=== PATIENT | male | born 1950 | race Two or more races ===

== ENCOUNTER 2024-03-30 12:05 | Emergency (ER) | payer MEDICARE, OTHER ==
[~2024-03-30] VITALS: Ht 172.7 cm; Wt 81.0 kg
[2024-03-30 12:09] VITALS: PULSE 91; RESP 15; O2SAT 97
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
[2024-03-30] MEDS: ceFAZolin 1GM/50ML 50 ML IV ONE (12:27)
[2024-03-30] MEDS: TETANUS-DIPTH-ACEL PERTUSSIS 0.5ML SYR Tdap IM ONE (12:29)
[2024-03-30] MEDS: LIDOCAINE 1% HCL (LOCAL ANESTH.) INJ 20ML MDV ID ONE (12:55)
[2024-03-30 12:58] LABS: Urine Bacteria None Seen /hpf (None Seen)
[2024-03-30 12:58] LABS: Basophils # (auto) 0 10 ^3/uL (0-0.2); Basophils % (auto) 0.4 % (0.0-2.0); Eosinophils # (auto) 0.1 10 ^3/uL (0-0.8); Eosinophils % (auto) 0.7 % (0.0-7.0); Hematocrit 47.2 % (41.0-53.0); Hemoglobin 16.5 g/dL (13.5-17.5); Lymphocytes % (auto) 12.7 % (10.0-50.0); Mean Corpuscular Hemoglobin 33.5 pg (28.0-32.0); Mean Corpuscular Hgb Conc. 34.9 g/dL (32.0-36.0); Monocytes # (auto) 0.5 10 ^3/uL (0-1.3); Monocytes % (auto) 6.1 % (0.0-12.0); Neutrophils # (auto) 6.3 10 ^3/uL (1.6-8.6); Neutrophils % (auto) 80.1 % (37.0-80.0); Nucleated Red Blood Cells % 0.1 %; Platelet Count (auto) 173 10^3/uL (140-450); Red Blood Cells 4.91 10^6/uL (4.5-5.90); Red Cell Distribution Width 12.7 % (11.8-14.3); White Blood Cell 7.8 10^3/uL (4.4-10.8)
[2024-03-30] MEDS: MORPHINE SULFATE 4 MG/ML SYR/VIAL IV ONE (12:59)
[2024-03-30] MEDS: ONDANSETRON HCL 4 MG/2 ML VIAL IV ONE (13:00)
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
[2024-03-30 13:23] VITALS: TEMP 98.8; O2SAT 97
[2024-03-30 13:26] LABS: Chloride 104 mmol/L (98-107); Potassium 4.4 mmol/L (3.5-5.1); Sodium 138 mmol/L (136-145)
[2024-03-30] MEDS: LIDOCAINE 1% HCL (LOCAL ANESTH.) INJ 20ML MDV ONE (13:26)
[2024-03-30 13:27] LABS: Anion Gap 12 (5-15); Carbon Dioxide 22 mmol/L (20-31)
[2024-03-30 13:28] LABS: Urine Blood 1+ /uL (Negative); Urine Clarity Clear (Clear); Urine Color Light-Yellow (Yellow); Urine Protein, UAD TRACE (Negative); Urine Specific Gravity 1.028 (1.001-1.035); Urine Urobilinogen Normal (Negative); Urine WBC <1 /hpf (0 - 3); Urine pH 5.5 (5.0-9.0)
[2024-03-30 13:28] LABS: Calcium 10.1 mg/dL (8.7-10.4)
[2024-03-30 13:33] LABS: BUN/Creatinine Ratio 12.2 (10.0-20.0); Blood Urea Nitrogen 14 mg/dL (9-23)
[2024-03-30 13:40] VITALS: BP 146/84; PULSE 84; RESP 13
[2024-03-30 13:45] LABS: Glucose 491 mg/dL (74-106)
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
== END 2024-03-30 14:12 | disposition short-term general hospital (02) ==
LOC: ER 12:05
DX: S01.511A Laceration without foreign body of lip, initial encounter (principal); S01.81XA Laceration without foreign body of other part of head, initial encounter; M18.12 Unilateral primary osteoarthritis of first carpometacarpal joint, left hand; S59.901A Unspecified injury of right elbow, initial encounter; S69.92XA Unspecified injury of left wrist, hand and finger(s), initial encounter; E11.9 Type 2 diabetes mellitus without complications; Z88.0 Allergy status to penicillin; W22.8XXA Striking against or struck by other objects, initial encounter; Y93.89 Activity, other specified; Y92.813 Airplane as the place of occurrence of the external cause; Y99.8 Other external cause status
CPT/HCPCS: 13132; 13133; 36415; 70450; 70486; 72125; 73080; 73120; 80048; 81001; 82962; 85025; 86850; 86900; 86901; 90471; 90715; 96365; 96375; 99291; J0690; J2003; J2270; J2405